=== PATIENT | female | born 1990 | race Two or more races ===

== ENCOUNTER 2017-02-16 20:25 | Emergency (ER) | payer SELFPAY ==
[~2017-02-16] VITALS: Ht 157.5 cm; Wt 68.0 kg
[~2017-02-16 20:25] MED LIST: LEVO750T5 PO; ONDA4TAB10 SL
--- NOTE | 2017-02-16 20:51 | PHYS DOC ---
Past Medical History Past Medical History: No Pertinent History Past Surgical History: No Surgical History Alcohol Use: None Drug Use: None Adult General Chief Complaint Chief Complaint: NAUSEA/VOMITING/DIARRHA HPI HPI Patient is a 26 year old female with no significant medical history who presents today stating she would like a test. Patient states she has had poor appetite with nausea and vomiting and is concerned she could be . She does not remember her last menstrual cycle. She is a 1 para 1. Patient denies any abdominal pain vaginal bleeding or back pain. Review of Systems Review of Systems Constitutional: Denies fever or chills [] Eyes: Denies change in visual acuity, redness, or eye pain [] HENT: Denies nasal congestion or sore throat [] Respiratory: Denies cough or shortness of breath [] Cardiovascular: No additional information not addressed in HPI [] GI: nausea, vomiting, : Denies dysuria or hematuria [] Musculoskeletal: Denies back pain or joint pain [] Integument: Denies rash or skin lesions [] Neurologic: Denies headache, focal weakness or sensory changes [] Endocrine: Denies polyuria or polydipsia [] Current Medications Current Medications Current Medications Medications (Trade) Dose Ordered Sig/Disha Start Time Stop Time Status Last Admin Dose Admin Ondansetron HCl (Zofran Odt) 4 mg 1X ONCE 02/16/17 21:00 02/16/17 21:01 DC Allergies Allergies Allergies Coded Allergies Type Severity Reaction Last Updated Verified No Known Drug Allergies 04/16/15 No Physical Exam Physical Exam Constitutional: Well developed, well nourished, no acute distress, non-toxic appearance. [] HENT: Normocephalic, atraumatic, bilateral external ears normal, oropharynx moist, no oral exudates, nose normal. [] Eyes: PERRLA, EOMI, conjunctiva normal, no discharge. [] Neck: Normal range of motion, no tenderness, supple, no stridor. [] Cardiovascular:Heart rate regular rhythm, no murmur [] Lungs & Thorax: Bilateral breath sounds clear to auscultation [] Abdomen: Bowel sounds normal, soft, no tenderness, no masses, no pulsatile masses. [] Skin: Warm, dry, no erythema, no rash. [] Back: No tenderness, no CVA tenderness. [] Extremities: No tenderness, no cyanosis, no clubbing, ROM intact, no edema. [] Neurologic: Alert and oriented X 3, normal motor function, normal sensory function, no focal deficits noted. [] Psychologic: Affect normal, judgement normal, mood normal. [] Current Patient Data Vital Signs Vital Signs Date Time Temp Pulse Resp B/P (MAP) Pulse Ox O2 Delivery O2 Flow Rate FiO2 02/16/17 20:35 99.2 88 20 124/72 (89) 99 Room Air 99.2 Lab Values Laboratory Tests Test 02/16/17 19:43 02/16/17 20:35 POC Urine HCG, Qualitative Hcg positive (Negative) Urine Collection Type Unknown Urine Color Yellow Urine Clarity Clear Urine pH 6.5 Urine Specific [place] 1.020 Urine Protein Negative mg/dL (NEG-TRACE) Urine Glucose (UA) Negative mg/dL (NEG) Urine Ketones (Stick) Trace mg/dL (NEG) Urine Blood Negative (NEG) Urine Nitrite Negative (NEG) Urine Bilirubin Negative (NEG) Urine Urobilinogen Dipstick 1.0 mg/dL (0.2 mg/dL) Urine Leukocyte Esterase Small (NEG) Urine RBC 0 /HPF (0-2) Urine WBC 5-10 /HPF (0-4) Urine Squamous Epithelial Cells Mod /LPF Urine Bacteria Few /HPF (0-FEW) Urine Mucus Mod /LPF EKG EKG [] Radiology/Procedures Radiology/Procedures [] Course & Med Decision Making Course & Med Decision Making Pertinent Labs and Imaging studies reviewed. (See chart for details) This is a 26-year-old female patient presented to the ED requesting a test because she has nausea vomiting and poor appetite. She does not remember her last menstrual cycle. Urine hCG is positive. Urine positive for UTI. Discharged with cephalexin. Patient appears well. She has no abdominal pain or vaginal bleeding. She'll be discharged with Zofran and promethazine. She'll be provided an ANIMAL CONTROL OFFICER for follow -up. Dragon Disclaimer [place] Disclaimer This electronic medical record was generated, in whole or in part, using a voice recognition dictation system. Departure Departure Impression: Primary Impression: Additional Impressions: Urinary tract infection during Nausea and vomiting during Disposition: 01 HOME, SELF-CARE Condition: STABLE Referrals: NO PCP (PCP) SABA PALENCIA Jr, MD Follow-up in 1-7 days Patient Instructions: ABCs of , Diet - Hyperemesis Gravidarum, Hyperemesis Gravidarum, - Urinary Tract Infection Additional Instructions: Your test in the emergency room was positive. We encouraged you to take vitamins. You have a urinary tract infection. Ensure you complete your antibiotics. We sent you home with nausea and vomiting medication. Nausea and vomiting is not unusual in . Take the prescribed medicines as ordered. Follow-up with the provided ANIMAL CONTROL OFFICER or your own ANIMAL CONTROL OFFICER in the next 7 days. Scripts Docosahexanoic Acid ( DHA) 200 Mg Capsule 200 MG PO DAILY, #90 CAP Prov: EVAN PATTERSON APRN 02/16/17 Cephalexin (CEPHALEXIN) 500 Mg Tablet 1 TAB PO BID, #14 TAB Prov: EVAN PATTERSON APRN 02/16/17 Promethazine Hcl (PROMETHAZINE HCL) 25 Mg Tablet 1 TAB PO PRN Q6HRS, #30 TAB Prov: EVAN PATTERSON APRN 02/16/17 Ondansetron Hcl (ZOFRAN) 4 Mg Tablet 1 TAB PO Q6HRS, #30 TAB Prov: EVAN PATTERSON APRN 02/16/17 Problem Qualifiers Primary Impression: Weeks of gestation: unspecified Qualified Codes: Z34.90 - Encounter for supervision of normal , unspecified, unspecified trimester Additional Impressions: Urinary tract infection during Trimester: unspecified trimester Qualified Codes: O23.40 - Unspecified infection of urinary tract in , unspecified trimester EVAN PATTERSON APRN Feb 16, 2017 20:51
[2017-02-16 20:58] LABS: BILIRUBIN,URINE NEGATIVE (NEG); GLUCOSE,URINE NEGATIVE (NEG); NITRITE,URINE NEGATIVE (NEG); PH,URINE 6.5; PROTEIN,URINE NEGATIVE (NEG-TRACE)
[2017-02-16] MEDS ORDERED: ONDANSETRON ODT 4 MG TAB.RAPDIS. PO ONE (21:00)
[2017-02-16 21:12] LABS: BACTERIA,URINE FEW /HPF (0-FEW); RBC,URINE 0 /HPF (0-2); SQUAMOUS EPITHELIAL CELL,UR MOD /LPF
[2017-02-16] MEDS ORDERED: PROM25TA10 PO (21:18)
[2017-02-16] MEDS ORDERED: ONDA4TAB7 PO (21:18)
[2017-02-16] MEDS ORDERED: CEPH500T PO (21:18)
[2017-02-16] MEDS ORDERED: DOCO200C4 PO (21:19)
[2017-02-16 21:23] VITALS: BP 133/108
== END 2017-02-16 21:28 | disposition home or self-care (01) ==
LOC: ER 20:25
DX: Z33.1 Pregnant state, incidental (principal); N39.0 Urinary tract infection, site not specified; R11.2 Nausea with vomiting, unspecified
CPT/HCPCS: 81001; 81025; 87086; 99284; Q0162

== ENCOUNTER 2017-03-23 15:14 | Emergency (ER) | payer OTHER ==
[~2017-03-23] VITALS: Ht 157.5 cm; Wt 68.0 kg
[~2017-03-23 15:14] MED LIST changes: +CEPH500T PO; +DOCO200C4 PO; +ONDA4TAB7 PO; +PROM25TA10 PO
--- NOTE | 2017-03-23 15:58 | PHYS DOC ---
Past Medical History Past Medical History: No Pertinent History Past Surgical History: No Surgical History Alcohol Use: None Drug Use: None Adult General Chief Complaint Chief Complaint: VAGINAL BLEEDING HPI HPI Patient is a 26 year old Greek speaking female who presents with bleeding. She states that today when she is restroom she noticed blood when she wiped. She denies any fevers chills nausea vomiting or any additional bleeding. She states she's been one other time without any complications. Her niece is acting as an drier belt conveyor. She denies any past medical history of sexual transmitted infections, she denies being on any medications. She denies feeling lightheaded or dizzy. Review of Systems Review of Systems Constitutional: Denies fever or chills [] Eyes: Denies change in visual acuity, redness, or eye pain [] HENT: Denies nasal congestion or sore throat [] Respiratory: Denies cough or shortness of breath [] Cardiovascular: No additional information not addressed in HPI [] GI: Denies abdominal pain, nausea, vomiting, bloody stools or diarrhea [] : Denies dysuria or hematuria [] Musculoskeletal: Denies back pain or joint pain [] Integument: Denies rash or skin lesions [] Neurologic: Denies headache, focal weakness or sensory changes [] Endocrine: Denies polyuria or polydipsia [] Current Medications Current Medications Current Medications Medications (Trade) Dose Ordered Sig/Disha Start Time Stop Time Status Last Admin Dose Admin Potassium Chloride (Klor-Con) 40 meq 1X ONCE 03/23/17 18:00 03/23/17 18:01 DC 03/23/17 18:03 40 MEQ Allergies Allergies Allergies Coded Allergies Type Severity Reaction Last Updated Verified No Known Drug Allergies 04/16/15 No Physical Exam Physical Exam Constitutional: Well developed, well nourished, no acute distress, non-toxic appearance. [] HENT: Normocephalic, atraumatic, bilateral external ears normal, oropharynx moist, no oral exudates, nose normal. [] Eyes: PERRLA, EOMI, conjunctiva normal, no discharge. [] Neck: Normal range of motion, no tenderness, supple, no stridor. [] Cardiovascular:Heart rate regular rhythm, no murmur [] Lungs & Thorax: Bilateral breath sounds clear to auscultation [] Abdomen/vaginal exam: Bowel sounds normal, soft, no tenderness, no masses, no pulsatile masses. Normal external genitalia, minimal blood in the vault, no motion tenderness. Skin: Warm, dry, no erythema, no rash. [] Back: No tenderness, no CVA tenderness. [] Extremities: No tenderness, no cyanosis, no clubbing, ROM intact, no edema. [] Neurologic: Alert and oriented X 3, normal motor function, normal sensory function, no focal deficits noted. [] Psychologic: Affect normal, judgement normal, mood normal. [] Current Patient Data Vital Signs Vital Signs Date Time Temp Pulse Resp B/P (MAP) Pulse Ox O2 Delivery O2 Flow Rate FiO2 03/23/17 16:02 98.0 77 20 120/79 (93) 97 Room Air 98.0 Lab Values Laboratory Tests Test 03/23/17 14:59 03/23/17 15:50 03/23/17 16:30 POC Urine HCG, Qualitative Hcg positive (Negative) Urine Collection Type Unknown Urine Color Straw Urine Clarity Clear Urine pH 6.0 Urine Specific [place] <=1.005 Urine Protein Negative mg/dL (NEG-TRACE) Urine Glucose (UA) Negative mg/dL (NEG) Urine Ketones (Stick) Negative mg/dL (NEG) Urine Blood Large (NEG) Urine Nitrite Negative (NEG) Urine Bilirubin Negative (NEG) Urine Urobilinogen Dipstick 0.2 mg/dL (0.2 mg/dL) Urine Leukocyte Esterase Trace (NEG) Urine RBC Occ /HPF (0-2) Urine WBC Occ /HPF (0-4) Urine Squamous Epithelial Cells Few /LPF Urine Bacteria Few /HPF (0-FEW) White Blood Count 6.8 x10^3/uL (4.0-11.0) Red Blood Count 4.42 x10^6/uL (3.50-5.40) Hemoglobin 13.6 g/dL (12.0-15.5) Hematocrit 39.8 % (36.0-47.0) Mean Corpuscular Volume 90 fL (79-100) Mean Corpuscular Hemoglobin 31 pg (25-35) Mean Corpuscular Hemoglobin Concent 34 g/dL (31-37) Red Cell Distribution Width 13.5 % (11.5-14.5) Platelet Count 283 x10^3/uL (140-400) Neutrophils (%) (Auto) 52 % (31-73) Lymphocytes (%) (Auto) 31 % (24-48) Monocytes (%) (Auto) 10 % (0-9) H Eosinophils (%) (Auto) 6 % (0-3) H Basophils (%) (Auto) 1 % (0-3) Neutrophils # (Auto) 3.5 x10^3uL (1.8-7.7) Lymphocytes # (Auto) 2.1 x10^3/uL (1.0-4.8) Monocytes # (Auto) 0.7 x10^3/uL (0.0-1.1) Eosinophils # (Auto) 0.4 x10^3/uL (0.0-0.7) Basophils # (Auto) 0.1 x10^3/uL (0.0-0.2) Prothrombin Time 13.5 SEC (11.7-14.0) Prothrombin Time INR 1.1 (0.8-1.1) PTT 39 SEC (24-38) H Maternal Serum HCG Beta Subunit 1473 mIU/mL (0-5) H Sodium Level 142 mmol/L (136-145) Potassium Level 3.4 mmol/L (3.5-5.1) L Chloride Level 105 mmol/L (98-107) Carbon Dioxide Level 26 mmol/L (21-32) Anion Gap 11 (6-14) Blood Urea Nitrogen 8 mg/dL (7-20) Creatinine 0.7 mg/dL (0.6-1.0) Estimated GFR (Cockcroft-Gault) 102.8 Glucose Level 75 mg/dL (70-99) Calcium Level 8.6 mg/dL (8.5-10.1) Laboratory Tests 03/23/17 16:30 Laboratory Tests 03/23/17 16:30 Microbiology 03/23/17 Wet Prep - Final, Complete EKG EKG [] Radiology/Procedures Radiology/Procedures [facility] [address] [place] [address] IMAGING REPORT Signed PATIENT: KHUSHBU BASURTO ACCOUNT: [id number] : 1990 LOCATION: ER AGE: 26 SEX: F EXAM STATUS: REG ER ORD. PHYSICIAN: JUSTIN BRITO MD REASON: vaginal bleeding PROCEDURE: OB < 14 WKS Pelvic ultrasound Indication: 26-year-old female with vaginal bleeding. Technique: Transabdominal ultrasound with grayscale and color Doppler images of the pelvis obtained. Comparison: None Findings: The uterus measures 10.4 x 6.9 x 6.8 cm with a single gestational sac. Yolk sac is not seen. Single fetus is seen with crown to rump length of 2.2 cm which corresponds to gestational age of 8 weeks 6 days. The right ovary measures 3.1 x 2.3 x 1.5 cm and is within normal limits. The left ovary measures 2.7 x 1.9 x 1.7 cm and is within normal limits. Impression: Single intrauterine with fetus showing no cardiac activity on ultrasound concerning for failure. DICTATED and SIGNED BY: HANANE PRESTON DO DATE: 03/23/17 1623 CC: JUSTIN BRITO MD; NO PCP ~ RUN DATE: 03/23/17 PAGE 1 RUN TIME: 1740 [facility] [address] [place] [address] Hal Ta M.D., [employer] PATIENT: KHUSHBU BASURTO ACCT: [id number] LOC: U : [id number] AGE/SX: ROOM: REG : 03/23/[address]: JUSTIN BRITO MD : 1990 BED: DIS : STATUS: [facility] TLOC: SPEC #: [id number] RITO: 03/23/17 STATUS: NICOLE REQ #: [id number] RECD: 03/23/[address] [facility] [address]: JUSTIN BRITO MD SOURCE: VAGINAL ENTR: 03/23/17-[address]: [facility]: ORDERED: WET PREP COMMENTS: Has specimen been collected/obtained? Y Procedure Result WET PREP Final YEAST NONE SEEN TRICHOMONAS NONE SEEN CLUE CELLS NONE SEEN END OF REPORT Impressions: Threatened miscarriage Bacteriuria Course & Med Decision Making Course & Med Decision Making Pertinent Labs and Imaging studies reviewed. (See chart for details) Ultrasound does not show a heartbeat in the uterus. It is suggestive of demise. Patient's being discharged home and can follow-up with [employer] and she has an appointment on April 02 with her own [employer]IN[employer]ING STEEL E[employer] physicians. She is instructed to avoid sexual intercourse, to return back to ER she feels lightheaded dizzy, has fevers, severe vaginal bleeding, or other concerns. Her blood type is B+ so she does not need program and her Quant is 1400. She also has possible urinary tract infection so we'll treat with nitrofurantoin twice a day for 7 days. Dragon Disclaimer Dragon Disclaimer This electronic medical record was generated, in whole or in part, using a voice recognition dictation system. Departure Departure Impression: Primary Impression: demise Disposition: HOME, SELF-CARE Condition: STABLE Referrals: NO PCP (PCP) WANG IZQUIERDO MD Patient Instructions: Threatened Miscarriage, [id number] Additional Instructions: The ultrasound does not show a heartbeat inside your uterus. You are likely having a miscarriage. You are being discharged home and can follow up with one of our [employer]IN[employer] STEEL [employer] physicians or your own REINFORCING STEEL ERECTOR physician. You should expect more vaginal bleeding over the next several days. Do not have sexual intercourse until you follow up with your [employer]IN[employer]ING STEEL E[employer] physician or ours. If your bleeding gets severe, he felt lightheaded, dizzy, you have troubles breathing or other concerns please return to emergency department for further evaluation and treatment. You have some bacteria in your urine and you will need to take treatment for the next 7 days. Your being prescribed an enema by called nitrofurantoin. Please take it twice a day for the next 7 days. Scripts Nitrofurantoin Monohyd/M-Cryst (MACROBID 100 MG CAPSULE) 100 Mg Capsule 1 CAP PO BID, #14 CAP Prov: JUSTIN BRITO MD 03/23/17 JUSTIN BRITO MD Mar 23, 2017 15:58
[2017-03-23 16:16] LABS: BILIRUBIN,URINE NEGATIVE (NEG); GLUCOSE,URINE NEGATIVE (NEG); NITRITE,URINE NEGATIVE (NEG); PROTEIN,URINE NEGATIVE (NEG-TRACE); UROBILINOGEN,URINE 0.2 mg/dL (0.2 mg/dL)
--- NOTE | 2017-03-23 16:33 | RAD ---
Pelvic ultrasound Indication: 26-year-old female with vaginal bleeding. Technique: Transabdominal ultrasound with grayscale and color Doppler images of the pelvis obtained. Comparison: None Findings: The uterus measures 10.4 x 6.9 x 6.8 cm with a single gestational sac. Yolk sac is not seen. Single fetus is seen with crown to rump length of 2.2 cm which corresponds to gestational age of 8 weeks 6 days. The right ovary measures 3.1 x 2.3 x 1.5 cm and is within normal limits. The left ovary measures 2.7 x 1.9 x 1.7 cm and is within normal limits. Impression: Single intrauterine with fetus showing no cardiac activity on ultrasound concerning for failure.
[2017-03-23 16:40] LABS: BASO # 0.1 x10^3/uL (0.0-0.2); BASO % 1 % (0-3); EOS % 6 % (0-3); HEMATOCRIT 39.8 % (36.0-47.0); HEMOGLOBIN 13.6 g/dL (12.0-15.5); LYMPH # 2.1 x10^3/uL (1.0-4.8); LYMPH % 31 % (24-48); MEAN CORPUSCULAR HEMOGLOBIN 31 pg (25-35); MEAN CORPUSCULAR HGB CONC 34 g/dL (31-37); MEAN CORPUSCULAR VOLUME 90 fL (79-100); MONO % 10 % (0-9); NEUT % 52 % (31-73); PLATELET COUNT 283 x10^3/uL (140-400); RED BLOOD COUNT 4.42 x10^6/uL (3.50-5.40); RED CELL DISTRIBUTION WIDTH 13.5 % (11.5-14.5); WHITE BLOOD COUNT 6.8 x10^3/uL (4.0-11.0)
[2017-03-23 16:41] LABS: BACTERIA,URINE FEW /HPF (0-FEW); RBC,URINE OCC /HPF (0-2); SQUAMOUS EPITHELIAL CELL,UR FEW /LPF; WBC,URINE OCC /HPF (0-4)
[2017-03-23 16:50] LABS: INR 1.1 (0.8-1.1); PROTHROMBIN TIME PATIENT 13.5 SEC (11.7-14.0)
[2017-03-23 16:53] LABS: CALCIUM 8.6 mg/dL (8.5-10.1); CREATININE 0.7 mg/dL (0.6-1.0); GFR 102.8; POTASSIUM 3.4 mmol/L (3.5-5.1)
[2017-03-23] MEDS ORDERED: NITR100C62 PO (17:47)
[2017-03-23] MEDS ORDERED: POTASSIUM CHLORIDE 20 MEQ TABLET.ER. PO ONE (18:00)
[2017-03-23 19:00] VITALS: BP 111/69
== END 2017-03-23 19:05 | disposition home or self-care (01) ==
LOC: ER 15:14
DX: O02.1 Missed abortion (principal); Z3A.08 8 weeks gestation of pregnancy
CPT/HCPCS: 36415; 76801; 80048; 81001; 81025; 84702; 85025; 85610; 85730; 86900; 86901; 87086; 87491; 87591; 99285; Q0111